=== PATIENT | female | born 1990 | race Caucasian/White ===

== ENCOUNTER 2021-10-10 18:16 | Emergency (ER) | payer SELFPAY ==
[2021-10-10] MEDS ORDERED: SODIUM CHLORIDE 0.9% 1,000 ML IV STA (18:39)
--- NOTE | 2021-10-10 18:39 | ED ---
Overdose HPI - General Chief Complaint: Overdose Stated Complaint: altered Source: EMS Mode of arrival: EMS Limitations: no limitations - History of Present Illness Initial Comments: 31-year-old female with past history of methamphetamine abuse presents to the emergency department from halfway. Patient was arrested on drug charges. She states that she was awaiting intake when she swallowed a half a gram of her mouth. She denies taking medications in an attempt to harm herself. States that she took to hide them from police. They were wrapped in cellophane and she states that she removed the powder from the cellophane before ingesting it. She complains of mild nausea. She denies using any other substances. Police called EMS who transported the patient to the hospital. Police are not at bedside and she is no longer in police custody at this time. - Related Data Allergies Allergy/AdvReac Type Severity Reaction Status Date / Time No Known Allergies Allergy Verified 10/10/21 18:39 Review of Systems ROS Statement: Those systems with pertinent positive or pertinent negative responses have been documented in the HPI. ROS Other: All systems not noted in ROS Statement are negative. Past Medical History Past Medical History: No Reported History Additional Past Medical History / Comment(s): AVM- 2020 History of Any Multi-Drug Resistant Organisms: None Reported Past Surgical History: No Surgical Hx Reported Past Psychological History: No Psychological Hx Reported Smoking Status: Current some day smoker Past Alcohol Use History: Rare Past Drug Use History: Methamphetamine General Exam Limitations: no limitations General appearance: alert, in no apparent distress Head exam: Present: atraumatic, normocephalic, normal inspection Eye exam: Present: normal appearance, PERRL, EOMI. Absent: scleral icterus, conjunctival injection, periorbital swelling ENT exam: Present: normal exam, mucous membranes moist Neck exam: Present: normal inspection. Absent: tenderness, meningismus, lymphadenopathy Respiratory exam: Present: normal lung sounds bilaterally. Absent: respiratory distress, wheezes, rales, rhonchi, stridor Cardiovascular Exam: Present: normal rhythm, tachycardia, normal heart sounds. Absent: systolic murmur, diastolic murmur, rubs, gallop, clicks GI/Abdominal exam: Present: soft, normal bowel sounds. Absent: distended, tenderness, guarding, rebound, rigid Extremities exam: Present: normal inspection, full ROM, normal capillary refill. Absent: tenderness, pedal edema, joint swelling, calf tenderness Back exam: Present: normal inspection Neurological exam: Present: alert, oriented X3, CN II-XII intact Psychiatric exam: Present: flat affect Skin exam: Present: warm, dry, intact, normal color. Absent: rash Course Vital Signs 10/10/21 10/10/21 18:31 19:43 Temperature 97.8 F Pulse Rate 18 L 94 Respiratory 106 H 16 Rate Blood Pressure 145/100 131/92 O2 Sat by Pulse 100 97 Oximetry Medical Decision Making - Medical Decision Making Upon arrival patient is placed into room 14. A thorough history and physical exam was performed. Patient is originally cooperative. Allows me to draw her laboratory studies and have an IV placed. She is given a liter bolus normal saline. There is issue with blood work results. Patient does require a second lab draw. The patient becomes aggressive at this time and states that she will not allow us to draw her blood for the second time. She is alert, oriented and capable of making her own decisions at this time. Patient does not appear to be significantly under the influence of mind altering substances at this time. Patient is requesting to leave. No police presents available and police did not indicate that she is still under arrest therefore the patient may make her own decision to leave AGAINST MEDICAL ADVICE. Patient is informed of risks for which she does understand. Patient's signs and a paper and leads - EKG Data EKG Comments: EKG demonstrates sinus rhythm with a rate of 90. LA interval 118. QRS 98. QTC of 395. No acute ST segment elevations or depressions. Disposition Clinical Impression: Methamphetamine abuse Disposition: Left Against Medical Advice Condition: Undetermined Is patient prescribed a controlled substance at d/c from ED?: No Referrals: None,Stated [Primary Care Provider] - 1-2 days Time of Disposition: 20:21
[2021-10-10] MEDS ORDERED: ONDANSETRON 4 MG/2 ML VIAL IVP STA (19:03)
[2021-10-10] MEDS ORDERED: ONDANSETRON 4 MG/2 ML VIAL IVP ONE (19:45)
[2021-10-10 20:28] VITALS: BP 131/92; PULSE 94; RESP 16; TEMP 97.8
== END 2021-10-10 20:20 | disposition left against medical advice (07) ==
LOC: EC 18:16
DX: F15.10 Other stimulant abuse, uncomplicated (principal); F17.200 Nicotine dependence, unspecified, uncomplicated
CPT/HCPCS: 93005; 96360; 99283